=== PATIENT | male | born 1995 | race African-American/Black ===

== ENCOUNTER 2018-05-04 02:55 | Emergency (ER) | payer OTHER ==
[~2018-05-04] VITALS: Ht 177.8 cm; Wt 74.8 kg
[2018-05-04 03:01] VITALS: BP 126/83
--- NOTE | 2018-05-04 03:02 | NUR ---
PT MELISSA GUIDRYS. TAKEN TO BED 4
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
--- NOTE | 2018-05-04 03:28 | NUR ---
Dr. Jewell evaluating patient at bedside.
[2018-05-04] MEDS ORDERED: KETOROLAC 60 MG/2 ML VIAL IM ONE (03:35)
--- NOTE | 2018-05-04 04:00 | NUR ---
Patient discharged with v/s stable. Patient states his chest feels better. Written and verbal after care instructions given and explained. Patient alert, oriented and verbalized understanding of instructions. Ambulatory with steady gait. All questions addressed prior to discharge. ID band removed. Patient advised to follow up with PMD. Rx of Motrin given. Patient educated on indication of medication including possible reaction and side effects. Opportunity to ask questions provided and answered.
== END 2018-05-04 04:00 | disposition home or self-care (01) ==
LOC: MED 02:55
DX: R07.89 Other chest pain (principal); F17.200 Nicotine dependence, unspecified, uncomplicated
CPT/HCPCS: 93005; 96372; 99283; J1885